=== PATIENT | male | born 1995 | race American Indian/Alaskan Native ===

== ENCOUNTER 2020-09-30 02:36 | Emergency (ER) | payer SELFPAY ==
--- NOTE | 2020-09-30 03:48 | XRay Report ---
XR hand 2V RT INDICATION / CLINICAL INFORMATION: swollen and pain COMPARISON: None available. FINDINGS/IMPRESSION: Acute mildly comminuted and minimally displaced fracture of the base of the right fifth metacarpal. N o additional fracture. No evidence of joint malalignment. Signer Name: Jimi Ray MD Signed: 09/30/2020 3:43 AM Workstation Name: [id number]
[2020-09-30] MEDS ORDERED: oxyCODONE /ACETAMINOPHEN 5-325MG TAB PO ONE (07:13)
[2020-09-30] MEDS ORDERED: IBUPROFEN 600 MG TAB PO ONE (07:13)
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
[2020-09-30 08:40] VITALS: BP 130/79
== END 2020-09-30 08:39 | disposition home or self-care (01) ==
LOC: ED 02:36
DX: S62.306A Unspecified fracture of fifth metacarpal bone, right hand, initial encounter for closed fracture (principal); S60.512A Abrasion of left hand, initial encounter; G43.909 Migraine, unspecified, not intractable, without status migrainosus; F12.90 Cannabis use, unspecified, uncomplicated; Z79.899 Other long term (current) drug therapy; X58.XXXA Exposure to other specified factors, initial encounter; Y93.89 Activity, other specified; Y92.89 Other specified places as the place of occurrence of the external cause; Y99.8 Other external cause status

== ENCOUNTER 2020-12-10 12:33 | Emergency (ER) | payer OTHER ==
--- NOTE | 2020-12-10 13:02 | Emergency Department Report ---
ED General Adult HPI - General Chief complaint: Sore Throat Stated complaint: TONSILS ARE SWOLLEN Time Seen by Provider: 12/10/20 12:48 Source: patient Mode of arrival: Ambulatory Limitations: No Limitations - History of Present Illness Initial comments: 25-year-old -Malagasy male patient without past medical history presents with complaints of sore throat x3 days. He rates his pain as a 7/10 in severity states it is worsening since its onset. He denies any cough, chest pain, rashes, or fever/chills/sweats. He does admit to recent sick contact with someone with Covid, however he had a negative COVID-19 test done 2 days ago. No loss of taste or smell per patient. He has not tried any medications for his symptoms. - Related Data Previous Rx's Medication Instructions Recorded Last Taken Type Acetamin/Codeine 120-12Mg/5 ml 5 ml PO BID PRN #10 oz 05/07/14 Unknown Rx [Tylenol/Codeine] Penicillin Vk [Veetids TAB] 500 mg PO BID #20 tablet 05/07/14 Unknown Rx predniSONE [Deltasone] 40 mg PO QDAY #3 day 05/07/14 Unknown Rx Ibuprofen [Motrin 800 MG tab] 800 mg PO Q8HR PRN #30 tablet 09/30/20 Unknown Rx Oxycodone HCl/Acetaminophen 1 each PO Q6HR PRN #12 tablet 09/30/20 Unknown Rx [Percocet 7.5/325 mg] Amoxicillin [Trimox CAP] 500 mg PO BID 10 Days #20 capsule 12/10/20 Unknown Rx Ibuprofen [Motrin 800 MG tab] 800 mg PO Q8HR PRN #15 tablet 12/10/20 Unknown Rx Allergies Allergy/AdvReac Type Severity Reaction Status Date / Time No Known Allergies Allergy Verified 05/07/14 11:26 ED Review of Systems ROS: Stated complaint: TONSILS ARE SWOLLEN Other details as noted in HPI Constitutional: denies: chills, fever, malaise ENT: throat pain Respiratory: denies: cough, shortness of breath Cardiovascular: denies: chest pain Gastrointestinal: denies: nausea, vomiting Skin: denies: rash, change in color Neurological: denies: headache ED Past Medical Hx - Past Medical History Previous Medical History?: Yes Hx Headaches / Migraines: Yes - Surgical History Past Surgical History?: No - Social History Smoking Status: Current Every Day Smoker Substance Use Type: Alcohol - Medications Home Medications: Home Medications Medication Instructions Recorded Confirmed Last Taken Type Acetamin/Codeine 120-12Mg/5 ml 5 ml PO BID PRN #10 oz 05/07/14 Unknown Rx [Tylenol/Codeine] Penicillin Vk [Veetids TAB] 500 mg PO BID #20 tablet 05/07/14 Unknown Rx predniSONE [Deltasone] 40 mg PO QDAY #3 day 05/07/14 Unknown Rx Ibuprofen [Motrin 800 MG tab] 800 mg PO Q8HR PRN #30 tablet 09/30/20 Unknown Rx Oxycodone HCl/Acetaminophen 1 each PO Q6HR PRN #12 tablet 09/30/20 Unknown Rx [Percocet 7.5/325 mg] Amoxicillin [Trimox CAP] 500 mg PO BID 10 Days #20 capsule 12/10/20 Unknown Rx Ibuprofen [Motrin 800 MG tab] 800 mg PO Q8HR PRN #15 tablet 12/10/20 Unknown Rx ED Physical Exam - General Limitations: No Limitations General appearance: alert, in no apparent distress - Head Head exam: Present: atraumatic, normocephalic - Eye Eye exam: Present: normal appearance. Absent: scleral icterus - Expanded ENT Exam Expanded Mouth exam: Absent: drooling, trismus, muffled voice Throat exam: Positive: tonsillar erythema, tonsillomegaly (mild, bilateral ), other (Uvula is midline). Negative: tonsillar exudate, R peritonsillar mass, L peritonsillar mass - Neck Neck exam: Present: full ROM, lymphadenopathy (Mild bilateral tender lymphadenopathy noted) - Respiratory Respiratory exam: Absent: respiratory distress - Cardiovascular Cardiovascular Exam: Present: regular rate - Neurological Exam Neurological exam: Present: alert, oriented X3 - Psychiatric Psychiatric exam: Present: normal affect, normal mood - Skin Skin exam: Present: warm, dry, intact, normal color. Absent: rash ED Course Vital Signs 12/10/20 12:44 Temperature 98.5 F Pulse Rate 59 L Respiratory 20 Rate Blood Pressure 136/80 O2 Sat by Pulse 99 Oximetry ED Medical Decision Making - Medical Decision Making 25-year-old -Malag[place] male patient without past medical history presents with complaints of sore throat x3 days. He rates his pain as a 7/10 in severity states it is worsening since its onset. He denies any cough, chest pain, rashes, or fever/chills/sweats. He does admit to recent sick contact with someone with Covid, however he had a negative COVID-19 test done 2 days ago. No loss of taste or smell per patient. He has not tried any medications for his symptoms. Bilateral tonsillar erythema with mild to moderate swelling noted on exam. Will treat empirically for strep pharyngitis with Amoxil. Patient to follow-up with his primary care doctor as needed. Discussed signs and symptoms that should prompt immediate return to the emergency department in detail patient verbalizes understanding. Critical care attestation.: If time is entered above; I have spent that time in minutes in the direct care of this critically ill patient, excluding procedure time. ED Disposition Clinical Impression: Acute bacterial pharyngitis Disposition: 01 HOME / SELF CARE / HOMELESS Is pt being admited?: No Condition: Stable Prescriptions: Ibuprofen [Motrin 800 MG tab] 800 mg PO Q8HR PRN #15 tablet PRN Reason: pain Amoxicillin [Trimox CAP] 500 mg PO BID 10 Days #20 capsule Referrals: [facility] [Provider Group] - as needed Forms: Work/School Release Form(ED)
[2020-12-10 13:48] VITALS: BP 122/77
== END 2020-12-10 13:45 | disposition home or self-care (01) ==
LOC: ED 12:33
DX: J02.8 Acute pharyngitis due to other specified organisms (principal); B96.89 Other specified bacterial agents as the cause of diseases classified elsewhere; G43.909 Migraine, unspecified, not intractable, without status migrainosus; F17.200 Nicotine dependence, unspecified, uncomplicated; Z72.89 Other problems related to lifestyle; Z79.899 Other long term (current) drug therapy
CPT/HCPCS: 99282